=== PATIENT | female | born 1995 | race American Indian/Alaskan Native ===

== ENCOUNTER 2017-03-20 20:43 | Emergency (ER) | payer SELFPAY ==
[2017-03-20] MEDS ORDERED: ZOFRAN ODT PO ONE (20:50)
[2017-03-20] MEDS ORDERED: ZOFRAN ODT ONE (20:55)
[2017-03-20 21:39] LABS: Basophils % (Auto) 0.6 % (0.0-1.8); Eosinophils % (Auto) 0.2 % (0.0-4.3); Hematocrit 40.9 % (30.3-42.9); Hemoglobin 13.5 gm/dl (10.1-14.3); Mean Corpuscular HGB Conc 33 % (30-34); Mean Corpuscular Hemoglobin 30 pg (28-32); Mean Corpuscular Volume 92 fl (79-97); Platelet Count 322 K/mm3 (140-440); Red Blood Count 4.45 M/mm3 (3.65-5.03); Red Cell Distribution Width 13.7 % (13.2-15.2); White Blood Count 14.9 K/mm3 (4.5-11.0)
[2017-03-20 22:03] LABS: Alanine Aminotransferase 12 units/L (7-56); Albumin 4.1 g/dL (3.9-5); Albumin/Globulin Ratio 1.2 %; Alkaline Phosphatase 65 units/L (35-129); Anion Gap 17 mmol/L; Blood Urea Nitrogen 6 mg/dL (7-17); Calcium 9.1 mg/dL (8.4-10.2); Carbon Dioxide 24 mmol/L (22-30); Chloride 101.5 mmol/L (98-107); Glucose 108 mg/dL (65-100); Lipase 21 units/L (13-60); Potassium 3.3 mmol/L (3.6-5.0); Sodium 139 mmol/L (137-145); Total Protein 7.4 g/dL (6.3-8.2)
[2017-03-20 23:23] LABS: Bilirubin,Urine NEG (Negative); Blood,Urine MOD (Negative); Ketones,Urine NEG (Negative); Leukocyte Esterase,Urine NEG (Negative); Mucus,Urine 2+ /HPF; Nitrite,Urine NEG (Negative); Urobilinogen,Urine < 2.0 mg/dL (<2.0)
[2017-03-20] MEDS ORDERED: K-DUR PO ONE (23:23)
--- NOTE | 2017-03-20 23:57 | Emergency Department Report ---
HPI - General Chief Complaint: Abdominal Pain Time Seen by Provider: 03/20/17 23:22 - HPI HPI: This is a 21-year-old Afro-Russian female presents the emergency department with complaint of lower abdominal pain has been going on since about 1 PM this afternoon. She had some nausea with one episode of vomiting when she presented to the emergency department but that has since resolved. She tried some Pepto- Bismol with some mild relief. She denies any past medical history. She does not have a primary care physician. No recent travel or sick contacts at home. She denies any dysuria, vaginal bleeding or discharge, fever. ED Past Medical Hx - Past Medical History Previous Medical History?: No - Surgical History Past Surgical History?: No - Social History Smoking Status: Never Smoker Substance Use Type: None ED Review of Systems ROS: Stated complaint: ABD PAIN/VOMITING Other details as noted in HPI Comment: All other systems reviewed and negative Constitutional: denies: chills, fever Eyes: denies: eye pain, eye discharge, vision change ENT: denies: ear pain, throat pain Respiratory: denies: cough, shortness of breath, wheezing Cardiovascular: denies: chest pain, palpitations Gastrointestinal: abdominal pain, nausea, vomiting Genitourinary: denies: urgency, dysuria, discharge Musculoskeletal: denies: back pain, joint swelling, arthralgia Skin: denies: rash, lesions Neurological: denies: headache, weakness, paresthesias Physical Exam - Physical Exam Vital Signs: Vital Signs 03/20/17 03/20/17 20:45 23:13 Temperature 97.5 F L Pulse Rate 98 H Respiratory 18 14 Rate Blood Pressure 88/54 [Right] O2 Sat by Pulse 100 99 Oximetry Physical Exam: GENERAL: The patient is well-developed well-nourished. HEENT: Normocephalic. Atraumatic. Extraocular motions are intact. Patient has moist mucous membranes. Pupils equal reactive to light bilaterally. NECK: Supple. Trachea is midline. CHEST/LUNGS: Clear to auscultation. There is no respiratory distress noted. HEART/CARDIOVASCULAR: Regular. There is no tachycardia. There is no gallop rub or murmur. ABDOMEN: Abdomen is soft. Mild lower abdominal tenderness to palpation. No guarding or rebound tenderness. Patient has normal bowel sounds. There is no abdominal distention. SKIN: Skin is warm and dry. NEURO: The patient is awake, alert, and oriented. The patient is cooperative. The patient has no focal neurologic deficits. The patient has normal speech. MUSCULOSKELETAL: There is no tenderness or deformity. There is no limitation range of motion. There is no evidence of acute injury. ED Course Vital Signs 03/20/17 03/20/17 20:45 23:13 Temperature 97.5 F L Pulse Rate 98 H Respiratory 18 14 Rate Blood Pressure 88/54 [Right] O2 Sat by Pulse 100 99 Oximetry ED Medical Decision Making - Lab Data Result diagrams: 03/20/17 21:19 03/20/17 21:19 - Radiology Data Radiology results: image reviewed interpreted by me: Abdominal x-ray shows some nonspecific bowel obstructive bowel gas. - Medical Decision Making 21-year-old female presents with complaint of some lower abdominal pain since about 1 PM this afternoon. Vital signs stable throughout her ED course including being afebrile. Labs are unremarkable. No leukocytosis. No urinary tract infection. The patient is not . She does not have any complaints of vaginal bleeding or discharge. Abdominal x-ray does not show any acute process. She was reevaluated multiple times over multiple hours and she says she is feeling improved. For this reason a CT of the abdomen and pelvis was not done. She will follow-up with a primary care physician and will return to the ER with any worsening of her symptoms or any acute distress. - Differential Diagnosis , UTI, colitis, diverticulitis Critical Care Time: No Critical care attestation.: If time is entered above; I have spent that time in minutes in the direct care of this critically ill patient, excluding procedure time. ED Disposition Clinical Impression: Abdominal pain Qualifiers: Abdominal location: lower abdomen, unspecified Qualified Code(s): R10.30 - Lower abdominal pain, unspecified Disposition: DC-01 TO HOME OR SELFCARE Is pt being admited?: No Condition: Stable Instructions: Abdominal Pain (ED) Additional Instructions: Please follow-up with a primary care physician in the next few days. Return to the emergency department with any worsening of your symptoms or any acute distress. Referrals: PRIMARY CARE, [Primary Care Provider] - 3-5 Days [facility] [Outside] - 3-5 Days [facility] [Outside] - 3-5 Days [facility] [Outside] - 3-5 Days [facility] [Outside] - 3-5 Days Time of Disposition: 00:24
[2017-03-21 00:24] VITALS: BP 101/78
--- NOTE | 2017-03-21 09:45 | XRay Report ---
ABDOMINAL SERIES THREE VIEWS: 03/20/17 20:43:00 CLINICAL: Abdominal pain. FINDINGS: Supine and upright views demonstrate a normal bowel gas pattern with a moderate volume of stool in the colon. No distended small bowel and no air-fluid levels. No pneumoperitoneum. No mass or suspicious calcifications. Benign calcifications versus radiopaque material in the bowel in the pelvis. The bones and soft tissues are normal. IMPRESSION: Negative abdomen.
== END 2017-03-21 00:28 | disposition home or self-care (01) ==
LOC: ED 20:43
DX: R10.30 Lower abdominal pain, unspecified (principal)
CPT/HCPCS: 36415; 74020; 80053; 81001; 83690; 84703; 85025; Q0162

== ENCOUNTER 2018-03-14 15:03 | Emergency (ER) | payer MEDICAID ==
[2018-03-14 15:44] VITALS: BP 105/64
[2018-03-14 17:06] LABS: Hematocrit 36.7 % (30.3-42.9); Hemoglobin 12.5 gm/dl (10.1-14.3); Mean Corpuscular HGB Conc 34 % (30-34); Mean Corpuscular Hemoglobin 31 pg (28-32); Mean Corpuscular Volume 91 fl (79-97); Platelet Count 294 K/mm3 (140-440); Red Blood Count 4.05 M/mm3 (3.65-5.03); Red Cell Distribution Width 13.4 % (13.2-15.2)
[2018-03-14 17:09] LABS: Bacteria,Urine 2+ /HPF (Negative); Bilirubin,Urine NEG (Negative); Blood,Urine NEG (Negative); Color,Urine Amber (Yellow); Mucus,Urine 3+ /HPF
[2018-03-14 17:17] LABS: BUN/Creatinine Ratio 13; Blood Urea Nitrogen 5 mg/dL (7-17); Calcium 9.7 mg/dL (8.4-10.2); Hemolysis Index 2
[2018-03-14] MEDS ORDERED: NACL 0.9% 1000 ML 1,000 ML IV ONE (17:49)
[2018-03-14] MEDS ORDERED: MORPHINE IV ONE (17:49)
[2018-03-14] MEDS ORDERED: REGLAN IV ONE (17:49)
--- NOTE | 2018-03-14 17:57 | Emergency Department Report ---
ED Abdominal Pain HPI - General Chief Complaint: Abdominal Pain Stated Complaint: 14 WEEKS PAIN /CRAMPING Time Seen by Provider: 03/14/18 17:24 Source: patient, family Mode of arrival: Ambulatory Limitations: No Limitations - History of Present Illness Initial Comments: This is a 22-year-old female here reports that she is having abdominal cramping. And she is at 14 weeks . She said this started last night pain is 7 out of 10 and intubated. She says she started having some nausea and vomiting when she came to the ER but she only vomited once. She states that she was seen at [place] and had test done but did not follow up with OB as instructed. Denies any fever or chills. She reports some urinary burning and frequency. Denies any vaginal discharge or bleeding. Denies any back pain. Patient denies any medical problems and she is taking vitamins but has not started care as yet. Denies any shortness of breath or chest pain. Denies any swelling to her legs. No alleviating or exacerbating factors. No pain medication taken prior to coming to the emergency room. MD Complaint: abdominal pain -: Last night Location: suprapubic Radiation: none Migration to: no migration Severity: severe Severity scale (0 -10): 8 Quality: cramping Consistency: intermittent Worsens With: nothing Context: other () Associated Symptoms: nausea, vomiting, dysuria. denies: diarrhea, fever, chills , constipation, hematemesis, hematochezia, melena, hematuria, anorexia, syncope Treatments Prior to Arrival: other (none) - Related Data LMP Date: 12/02/17 Home Medications Medication Instructions Recorded Confirmed Last Taken Vit No.130/Iron/Folic 1 each PO DAILY 03/14/18 03/14/18 03/14/18 19:47 [ Tablet] Previous Rx's Medication Instructions Recorded Last Taken Type Cephalexin [Keflex] 500 mg PO Q8HR 7 Days #21 cap 03/14/18 Unknown Rx Ondansetron [Zofran TAB] 4 mg PO Q8HR PRN #15 tablet 03/14/18 Unknown Rx Allergies Allergy/AdvReac Type Severity Reaction Status Date / Time No Known Allergies Allergy Verified 03/20/17 20:58 ED Review of Systems ROS: Stated complaint: 14 WEEKS PAIN /CRAMPING Other details as noted in HPI Constitutional: denies: chills, fever Eyes: denies: eye pain ENT: denies: throat pain Respiratory: denies: cough, shortness of breath, SOB with exertion, SOB at rest , stridor, wheezing Cardiovascular: denies: chest pain, palpitations, dyspnea on exertion, edema, syncope, paroxysmal nocturnal dyspnea Gastrointestinal: abdominal pain. denies: diarrhea, constipation, hematemesis, melena, hematochezia Genitourinary: dysuria. denies: urgency, frequency, hematuria, discharge Musculoskeletal: denies: back pain, joint swelling, arthralgia, myalgia Skin: denies: rash, lesions Neurological: denies: headache, weakness ED Past Medical Hx - Past Medical History Previous Medical History?: No - Surgical History Past Surgical History?: No - Family History Family history: hypertension - Social History Smoking Status: Never Smoker Substance Use Type: None - Medications Home Medications: Home Medications Medication Instructions Recorded Confirmed Last Taken Type Cephalexin [Keflex] 500 mg PO Q8HR 7 Days #21 cap 03/14/18 Unknown Rx Ondansetron [Zofran TAB] 4 mg PO Q8HR PRN #15 tablet 03/14/18 Unknown Rx Vit No.130/Iron/Folic 1 each PO DAILY 03/14/18 03/14/18 03/14/18 19:47 History [ Tablet] ED Physical Exam - General Limitations: No Limitations General appearance: alert, in no apparent distress - Head Head exam: Present: atraumatic, normocephalic, normal inspection - Eye Eye exam: Present: normal appearance, PERRL, EOMI Pupils: Present: normal accommodation - ENT ENT exam: Present: normal exam, normal orophraynx, mucous membranes moist - Neck Neck exam: Present: normal inspection, full ROM. Absent: tenderness, meningismus, lymphadenopathy - Respiratory Respiratory exam: Present: normal lung sounds bilaterally. Absent: respiratory distress, chest wall tenderness - Cardiovascular Cardiovascular Exam: Present: regular rate, normal rhythm, normal heart sounds. Absent: systolic murmur, diastolic murmur - GI/Abdominal GI/Abdominal exam: Present: soft, normal bowel sounds. Absent: distended, tenderness, guarding, rebound, rigid, organomegaly, mass, bruit, pulsatile mass - Extremities Exam Extremities exam: Present: normal inspection, full ROM, normal capillary refill , other (No cce. + 2 pulses in all extremities, no neurovascular compromise). Absent: tenderness, pedal edema, joint swelling, calf tenderness - Back Exam Back exam: Present: normal inspection, full ROM, other (ambulates without any difficulties). Absent: tenderness, CVA tenderness (R), CVA tenderness (L), muscle spasm, paraspinal tenderness, vertebral tenderness, rash noted - Neurological Exam Neurological exam: Present: alert, oriented X3, normal gait - Psychiatric Psychiatric exam: Present: normal affect, normal mood - Skin Skin exam: Present: warm, dry, intact, normal color. Absent: rash ED Course Vital Signs 03/14/18 15:37 Temperature 98.3 F Pulse Rate 86 Respiratory 17 Rate Blood Pressure 105/64 O2 Sat by Pulse 98 Oximetry - Reevaluation(s) Reevaluation #1: 03/14/18 18:20 Patient reports abdominal cramping has stopped. She no longer has nausea or vomiting. Patient and receive 1 L normal saline, Zofran 4 mg IV and morphine 2 mg IV. She says she feels better. Reevaluation #2: 03/14/18 19:51 Patient with OB ultrasound which is stable. Potassium is 3.5 and she was repleted with potassium 40 and a N in the emergency room. I gave her results of her ultrasound and she is stable and still with no abdominal pain or nausea or vomiting. 03/14/18 19:53 Reevaluation #3: 03/14/18 20:12 Patient given Rocephin 1 g IV and emergency room for acute cystitis in . Her white count is 15.3. She tolerated well without any adverse reaction. ED Medical Decision Making - Lab Data Result diagrams: 03/14/18 16:38 03/14/18 16:38 Lab Results 03/14/18 03/14/18 03/14/18 Range/Units 16:38 16:38 16:38 WBC 15.3 H (4.5-11.0) K/mm3 RBC 4.05 (3.65-5.03) M/mm3 Hgb 12.5 (10.1-14.3) gm/dl Hct 36.7 (30.3-42.9) % MCV 91 (79-97) fl MCH 31 (28-32) pg MCHC 34 (30-34) % RDW 13.4 (13.2-15.2) % Plt Count 294 (140-440) K/mm3 Sodium 137 (137-145) mmol/L Potassium 3.5 L (3.6-5.0) mmol/L Chloride 97.9 L (98-107) mmol/L Carbon Dioxide 20 L (22-30) mmol/L Anion Gap 23 mmol/L BUN 5 L (7-17) mg/dL Creatinine 0.4 L (0.7-1.2) mg/dL Estimated GFR > 60 ml/min BUN/Creatinine Ratio 13 % Glucose 91 (65-100) mg/dL Calcium 9.7 (8.4-10.2) mg/dL HCG, Quant 29603 H (0-4) mIU/mL Urine Color (Yellow) Urine Turbidity (Clear) Urine pH (5.0-7.0) Ur Specific [place] (1.003-1.030) Urine Protein (Negative) mg/dL Urine Glucose (UA) (Negative) mg/dL Urine Ketones (Negative) mg/dL Urine Blood (Negative) Urine Nitrite (Negative) Urine Bilirubin (Negative) Urine Urobilinogen (<2.0) mg/dL Ur Leukocyte Esterase (Negative) Urine WBC (Auto) (0.0-6.0) /HPF Urine RBC (Auto) (0.0-6.0) /HPF U Epithel Cells (Auto) (0-13.0) /HPF Urine Bacteria (Auto) (Negative) /HPF Urine Mucus /HPF Blood Type 03/14/18 03/14/18 Range/Units 16:38 16:48 WBC (4.5-11.0) K/mm3 RBC (3.65-5.03) M/mm3 Hgb (10.1-14.3) gm/dl Hct (30.3-42.9) % MCV (79-97) fl MCH (28-32) pg MCHC (30-34) % RDW (13.2-15.2) % Plt Count (140-440) K/mm3 Sodium (137-145) mmol/L Potassium (3.6-5.0) mmol/L Chloride (98-107) mmol/L Carbon Dioxide (22-30) mmol/L Anion Gap mmol/L BUN (7-17) mg/dL Creatinine (0.7-1.2) mg/dL Estimated GFR ml/min BUN/Creatinine Ratio % Glucose (65-100) mg/dL Calcium (8.4-10.2) mg/dL HCG, Quant (0-4) mIU/mL Urine Color Ray[place] (Yellow) Urine Turbidity Turbid (Clear) Urine pH 7.0 (5.0-7.0) Ur Specific [place] 1.021 (1.003-1.030) Urine Protein 100 mg/dl (Negative) mg/dL Urine Glucose (UA) Neg (Negative) mg/dL Urine Ketones 80 (Negative) mg/dL Urine Blood Neg (Negative) Urine Nitrite Neg (Negative) Urine Bilirubin Neg (Negative) Urine Urobilinogen 2.0 (<2.0) mg/dL Ur Leukocyte Esterase Lg (Negative) Urine WBC (Auto) 61.0 H (0.0-6.0) /HPF Urine RBC (Auto) 6.0 (0.0-6.0) /HPF U Epithel Cells (Auto) 8.0 (0-13.0) /HPF Urine Bacteria (Auto) 2+ (Negative) /HPF Urine Mucus 3+ /HPF Blood Type A NEGATIVE Urine culture pending - Radiology Data Radiology results: report reviewed Ultrasound OB and transvaginal dictated by radiologist and report reviewed by myself. Please see details of report below. Patient: MITRA ESTES MR#: [id number] : 1995 Acct:[id number] Age/Sex: 22 / F ADM Date: 03/14/18 Loc: ED Attending Dr: Ordering Physician: LEEANNE ENCISO Date of Service: 03/14/18 Procedure(s): US OB >= 14 weeks Fetus Accession Number(s): [id number] cc: LEEANNE ENCISO FINAL REPORT EXAM: US OB gt; = 14 WEEKS FETUS HISTORY: constractions at 14weeks TECHNIQUE: Obstetrical sonographic imaging was performed Comparison: None FINDINGS: Images demonstrate single live intrauterine gestation in breech presentation. Posterior placenta without previa grade 0. Subjective amniotic fluid index within normal limits. heart rate measures 150 beats per minute. Cervical length measures 3.1 centimeters and is closed. measurements with estimated gestational age as follows: Biparietal diameter 15 weeks 1 day Head circumference 15 weeks 2 days Abdominal circumference 15 weeks 0 days Femur length 14 weeks 2 days Average sonographic gestational age 15 weeks 0 days Estimated due date by today's ultrasound 09/05/2018. HC/AC 1.24 Cephalic index 80.8 It is too early in the gestation for anatomic survey. IMPRESSION: Single live intrauterine gestation at 15 weeks 0 days with estimated due date of 09/05/2018. heart rate measures 150 beats per minute. Posterior placenta without previa. 3.1 centimeter cervical length, closed. Transcribed By: STEPHANIE Dictated By: ONEIL URIAS Electronically Authenticated By: ONEIL URIAS Signed Date/Time: 03/14/181837 DD/ 37 TD/TT: 03/14/181837 - Medical Decision Making This is a 22-year-old female here presenting with abdominal cramping and says she is 14 weeks . She says she went to [facility] and they did some testing to include blood test but did not do an ultrasound. She said they gave her information to follow up with [facility] but she did not get the follow-up. She says she started having abdominal cramping since last night with some urinary burning. She is on vitamin. Patient was seen and examined by myself. Patient with normal exam of abdomen and back. CBC stable except she has a white count of 15.3. BMP stable except she has mild decrease in potassium of 3.5. Positive quantitative hCG and her urinalysis results shows turbid urine, ketones 80, large leukocyte Estrace and positive white blood cell and bacteria in her urine. Urine culture sent. She had had OB ultrasound and it shows patient at 15 weeks and 0 day , heart tone is at 150 bpm, ovaries are normal. Ultrasound was read by radiologist and report reviewed by myself and this was relayed to patient. She received normal saline IV 1 L, antinausea medication and IV medication for pain and she feels much better. Assessment/plan Dysuria -urinalysis shows large leukocyte Estrace, positive white blood cell, turbid urine, positive bacteria. Urine culture sent Acute cystitis without hematuria and -Rocephin 1 g IV in the emergency room and will sent home on Keflex Pelvic pain and -patient given morphine 2 mg IV and her pain has resolved Nausea and vomiting an -patient given normal saline 1 L and Reglan 10 mg IV with relief of nausea and vomiting. Tolerating oral fluids in the emergency room without any nausea or vomiting Hypokalemia-a short repleted with potassium 40 mEq 1 dose. Leukocytosis-patient white count is 15.3 and suspect from acute cystitis. She will be placed on antibiotic. Patient referred to Dr. Ashley Rebolledo REMARKETING MANAGER to call tomorrow to schedule appointment for visit and a encourage her to continue taken vitamin. Patient is stable. Discharged home with her family in stable condition. Vital signs are stable and she is afebrile. Nausea and vomiting and pain has been relieved. She is able to tolerate oral liquids without any problem. She says she is feeling a lot better. I discussed with her to follow-up with Dr. Ashley Rebolledo REMARKETING MANAGER in 2 days to call tomorrow to schedule an appointment and she voiced understanding. I instructed her that she has to drink at least 2-3 L of water daily to keep hydrated. I told her she needs to take antibiotic to prevent from getting worsening infection. Patient discharged home with a prescription for Zofran and Keflex. - Differential Diagnosis ectopic , threatened miscarriage, UTI, dehydration Critical care attestation.: If time is entered above; I have spent that time in minutes in the direct care of this critically ill patient, excluding procedure time. ED Disposition Clinical Impression: Acute cystitis during in second trimester, Pelvic pain during in second trimester, antepartum, Nausea and vomiting in , Dehydration, mild Leukocytosis Qualifiers: Leukocytosis type: unspecified Qualified Code(s): D72.829 - Elevated white blood cell count, unspecified Disposition: DC-01 TO HOME OR SELFCARE Is pt being admited?: No Does the pt Need Aspirin: No Condition: Stable Instructions: Abdominal Pain (ED) Additional Instructions: Please follow up with Dr. Ashley Rebolledo REMARKETING MANAGER in 2 days for care. Increasing your fluid intake least 2-3 L of water daily If you develop recurrent abdominal pain, vaginal bleeding or discharge and nausea and vomiting before he see REMARKETING MANAGER, please return to the emergency room Take antibiotic as prescribed Take Zofran for nausea and vomiting Prescriptions: Cephalexin [Keflex] 500 mg PO Q8HR 7 Days #21 cap Ondansetron [Zofran TAB] 4 mg PO Q8HR PRN #15 tablet PRN Reason: Nausea And Vomiting Referrals: PRIMARY CARE, [Primary Care Provider] - 03/16/18 LORA REBOLLEDO MD [Staff Physician] - 03/16/18 Forms: Work/School Release Form(ED)
--- NOTE | 2018-03-14 18:46 | Ultrasound Report ---
FINAL REPORT EXAM: US OB > = 14 WEEKS FETUS HISTORY: constractions at 14weeks TECHNIQUE: Obstetrical sonographic imaging was performed Comparison: None FINDINGS: Images demonstrate single live intrauterine gestation in breech presentation. Posterior placenta without previa grade 0. Subjective amniotic fluid index within normal limits. heart rate measures 150 beats per minute. Cervical length measures 3.1 centimeters and is closed. measurements with estimated gestational age as follows: Biparietal diameter 15 weeks 1 day Head circumference 15 weeks 2 days Abdominal circumference 15 weeks 0 days Femur length 14 weeks 2 days Average sonographic gestational age 15 weeks 0 days Estimated due date by today's ultrasound 09/05/2018. HC/AC 1.24 Cephalic index 80.8 It is too early in the gestation for anatomic survey. IMPRESSION: Single live intrauterine gestation at 15 weeks 0 days with estimated due date of 09/05/2018. heart rate measures 150 beats per minute. Posterior placenta without previa. 3.1 centimeter cervical length, closed.
[2018-03-14] MEDS ORDERED: K-DUR PO ONE (19:37)
[2018-03-14] MEDS ORDERED: ROCEPHIN IM ONE (20:17)
[2018-03-14] MEDS ORDERED: ROCEPHIN/NS 1 GM/50 ML 1 GM/50 ML BAG IV ONE (20:30)
== END 2018-03-14 20:50 | disposition home or self-care (01) ==
LOC: ED 15:03
DX: O23.12 Infections of bladder in pregnancy, second trimester (principal); O21.9 Vomiting of pregnancy, unspecified; O99.282 Endocrine, nutritional and metabolic diseases complicating pregnancy, second trimester; O26.892 Other specified pregnancy related conditions, second trimester; D72.829 Elevated white blood cell count, unspecified; E86.0 Dehydration; Z3A.15 15 weeks gestation of pregnancy
CPT/HCPCS: 36415; 76805; 80048; 81001; 84702; 85027; 86900; 86901; 87076; 87086; 87186; 96361; 96365; 96375; J0696; J2270; J2765; J7030

== ENCOUNTER 2018-04-15 17:42 | Emergency (ER) | payer SELFPAY ==
[2018-04-15 17:52] VITALS: BP 98/53
[2018-04-15 20:08] LABS: Basophils % (Auto) 0.4 % (0.0-1.8); Eosinophils # (Auto) 0.2 K/mm3 (0.0-0.4); Eosinophils % (Auto) 1.5 % (0.0-4.3); Hematocrit 33.8 % (30.3-42.9); Hemoglobin 11.4 gm/dl (10.1-14.3); Lymphocytes # (Auto) 1.5 K/mm3 (1.2-5.4); Lymphocytes % (Auto) 14.4 % (13.4-35.0); Mean Corpuscular HGB Conc 34 % (30-34); Mean Corpuscular Hemoglobin 31 pg (28-32); Mean Corpuscular Volume 91 fl (79-97); Monocytes # (Auto) 0.5 K/mm3 (0.0-0.8); Monocytes % (Auto) 5.1 % (0.0-7.3); Platelet Count 274 K/mm3 (140-440); Red Blood Count 3.69 M/mm3 (3.65-5.03); Red Cell Distribution Width 14.3 % (13.2-15.2)
[2018-04-15 20:25] LABS: Alanine Aminotransferase 19 units/L (7-56); BUN/Creatinine Ratio 15; Blood Urea Nitrogen 6 mg/dL (7-17); Calcium 8.8 mg/dL (8.4-10.2); Hemolysis Index 3
== END 2018-04-15 20:00 | disposition left against medical advice (07) ==
LOC: ED 17:42
DX: O26.892 Other specified pregnancy related conditions, second trimester (principal); R10.9 Unspecified abdominal pain; Z3A.18 18 weeks gestation of pregnancy; Z53.21 Procedure and treatment not carried out due to patient leaving prior to being seen by health care provider
CPT/HCPCS: 36415; 80053; 84702; 85025